=== PATIENT | female | born 1990 | race Caucasian/White ===

== ENCOUNTER → 2018-01-15 09:13 | Outpatient (CLI) | payer MEDICAID, SELFPAY ==
--- NOTE | 2018-01-15 13:57 | EEG ---
- Electroencephalogram Date of service: 01/15/2018 History EEG is being done in this 27 yr F to rule out seizures EEG Description: This is an 18 channel EEG with 10-20 lead placement system. Bipolar montages, Referential and Circumferential montages were reviewed. Photic stimulation and Hyperventilation were performed. The posterior dominant background rhythm is 9 HZ synchronous, symmetric, reacting to eye opening and closing. Photic stimulation elicited normal driving response but no abnormal photoparoxysmal response, Hyperventilation elicited abnormal photoparoxysmal response in form of 3 episodes of about 4 Hz generalized spike and slow waves epileptiform discharges. Sleep was identified. The background rhythm is in the normal alpha frequency range. There was no electrographic seizures noted during this recording. EEG Interpretation This is an abnormal EEG due to the presence of 4 Hz generalized spike and slow wave epileptiform discharges seen during hyperventilation activation technique. There is no electrographic seizures noted during the record. Dr. Quintero informed of the abnormal results at [phone] on 01/15/18 at 4 PM, and also discussed possible treatment options with Gigi as well as Neurology consultation and evaluation.
--- NOTE | 2018-01-15 14:04 | EEG_ITS ---
- Electroencephalogram Date of service: 01/15/2018 History EEG is being done in this 27 yr F to rule out seizures EEG Description: This is an 18 channel EEG with 10-20 lead placement system. Bipolar montages, Referential and Circumferential montages were reviewed. Photic stimulation and Hyperventilation were performed. The posterior dominant background rhythm is 9 HZ synchronous, symmetric, reacting to eye opening and closing. Photic stimulation elicited normal driving response but no abnormal photoparoxysmal response, Hyperventilation elicited abnormal photoparoxysmal response in form of 3 episodes of about 4 Hz generalized spike and slow waves epileptiform discharges. Sleep was identified. The background rhythm is in the normal alpha frequency range. There was no electrographic seizures noted during this recording. EEG Interpretation This is an abnormal EEG due to the presence of 4 Hz generalized spike and slow wave epileptiform discharges seen during hyperventilation activation technique. There is no electrographic seizures noted during the record. Dr. Quintero informed of the abnormal results at [phone] on 01/15/18 at 4 PM, and also discussed possible treatment options with Gigi as well as Neurology consultation and evaluation.
== END ==
PROVIDERS: Family Provider Family Medicine; PCP Family Medicine; Visit Provider Family Medicine
DX: R55 Syncope and collapse (principal)
CPT/HCPCS: 95819

== ENCOUNTER → 2019-10-11 09:42 | Outpatient (CLI) | payer MEDICAID, SELFPAY ==
[2019-10-11 11:08] LABS: hCG Titer Quant., Serum 614 mIU/mL (1-3)
== END ==
PROVIDERS: PCP Family Medicine; Visit Provider Advanced Practice Midwife
DX: O20.0 Threatened abortion (principal); Z3A.00 Weeks of gestation of pregnancy not specified
CPT/HCPCS: 36415; 84702; 86850; 86900; 86901

== ENCOUNTER → 2019-10-13 14:32 | Outpatient (CLI) | payer MEDICAID, SELFPAY ==
[2019-10-13 15:33] LABS: hCG Titer Quant., Serum 334 mIU/mL (1-3)
== END ==
PROVIDERS: PCP Family Medicine; Visit Provider Advanced Practice Midwife
DX: O20.0 Threatened abortion (principal)
CPT/HCPCS: 36415; 84702

== ENCOUNTER → 2021-04-16 09:12 | Outpatient (CLI) | payer MEDICAID, SELFPAY ==
[2021-04-16 10:40] LABS: Hematocrit 42.9 % (37-47); Hemoglobin 14.7 g/dL (12.0-15.0); Mean Corp Hgb Conc 34.3 g/dL (32-36); Mean Corpuscular Hgb 29.1 pg (27.0-32.0); Mean Platelet Vol. 11.2 fl (6.2-12.0); Platelet Count 243 K/mm3 (150-450); RBC Distribution Width CV 12.2 % (11.6-14.6); RBC Distribution Width SD 37.3 fl (35.1-43.9); Red Blood Count 5.05 M/mm3 (4.2-5.4); White Blood Count 5.5 K/mm3 (4.4-11.0)
[2021-04-16 11:01] LABS: Anion Gap 5 (5-15); BUN 15 mg/dL (7-18); BUN/Creat Ratio 17.1 RATIO (10-20); Calcium,Total 9.4 mg/dL (8.5-10.1); Chloride 107 mmol/L (98-107); Creatinine, Serum 0.88 mg/dL (0.55-1.02); EST Glomerular Filtration Rate 81 mL/min (>60); Est Glom Filt Rate - Afr Amer 98 mL/min (>60); Estradiol 66.2 pg/mL; Follicle Stimulating Hormone 5.6 mIU/mL; Glucose 114 mg/dL (74-106); Luteinizing Hormone 9.2 mIU/mL; Potassium 3.4 mmol/L (3.5-5.1); Prolactin 10.7 ng/mL; Sodium Level 139 mmol/L (136-145); T4 Free Direct 1.24 ng/dL (0.76-1.46); Thyroid Stim Hormone (TSH) 1.86 uIU/mL (0.358-3.74)
[2021-04-22 13:31] LABS: Testosterone Free 1.8 pg/mL (0.0-4.2)
== END ==
PROVIDERS: PCP Family Medicine; Visit Provider Obstetrics & Gynecology
DX: N93.9 Abnormal uterine and vaginal bleeding, unspecified (principal)
CPT/HCPCS: 36415; 80048; 82627; 82670; 83001; 83002; 84146; 84402; 84439; 84443; 85027; 82626